=== PATIENT | male | born 1965 | race Caucasian/White ===

== ENCOUNTER 2017-05-03 23:54 | Emergency (ER) | payer BC ==
[2017-05-04] MEDS ORDERED: SODIUM CHLORIDE 0.9% 1,000 ML IV STA ×2 (00:23)
[2017-05-04] MEDS ORDERED: HYDROCORTISONE SUCCINATE 100 MG/2 ML VIAL IV STA (00:23)
[2017-05-04] MEDS ORDERED: ACETAMINOPHEN IV (For NPO) 1,000 MG in EMPTY BAG 1 BAG IVPB STA (00:34)
[2017-05-04] MEDS ORDERED: IBUPROFEN 800 MG TAB PO STA (00:34)
--- NOTE | 2017-05-04 00:46 | XR ---
EXAM: XR Chest, 2 Views CLINICAL HISTORY: Reason: Weakness TECHNIQUE: Frontal and lateral views of the chest. COMPARISON: No relevant prior studies available. FINDINGS: Lungs: No consolidation. Pleural space: No effusion. No pneumothorax. Heart: No cardiomegaly. Mediastinum: Unremarkable. Bones/joints: Unremarkable. IMPRESSION: No acute cardiopulmonary process.
--- NOTE | 2017-05-04 01:01 | ED ---
General Adult HPI - General Chief complaint: Shortness of Breath Stated complaint: MARIA LUISA Time Seen by Provider: 05/04/17 00:23 Source: patient, family, RN notes reviewed, old records reviewed Mode of arrival: ambulatory Limitations: no limitations - History of Present Illness Initial comments: This is a 51-year-old male the ER for evaluation of shortness of breath difficulty breathing and fever. 2 days with. Patient had some similar episodes in order last month. Patient suffers from asthma as well as adrenal insufficiency, patient states fever and worsening shortness of breath started tonight, he did increase his steroid dose by 10 mg. Denies any significant shortness of breath aside from normal, but he does have some left-sided chest pain. No nausea no vomiting no diarrhea - Related Data Home Medications Medication Instructions Recorded Confirmed ALPRAZolam [Xanax] 2 mg PO DIRECTED PRN 08/25/13 05/04/17 Albuterol Inhaler [Ventolin 2 puff INHALATION Q6HR PRN 08/25/13 05/04/17 Inhaler] Allopurinol [Zyloprim] 300 mg PO DAILY 08/25/13 05/04/17 Cholecalciferol [Vitamin D3] 5,000 unit PO DAILY 08/25/13 05/04/17 Indomethacin [Indocin] 50 mg PO DIRECTED 08/25/13 05/04/17 Ipratropium [place] [Atrovent Hfa] 2 puff INHALATION QID 08/25/13 05/04/17 Omeprazole 40 mg PO AC-BRKFST 08/25/13 05/04/17 Hydrocortisone 25 mg PO DIRECTED 08/26/13 05/04/17 Multivitamin [Men's Multi-Vitamin] 1 each PO DAILY 12/02/13 05/04/17 Budesonide-Formot 160-4.5 Mcg 1 puff INHALATION BID 03/31/14 05/04/17 [Symbicort 160-4.5 Mcg Inhaler] Montelukast [Singulair] 10 mg PO DAILY 06/29/14 05/04/17 Allergies Allergy/AdvReac Type Severity Reaction Status Date / Time citalopram AdvReac Unknown Verified 05/04/17 00:00 sertraline HCl [From Zoloft] AdvReac Unknown Verified 05/04/17 00:00 Review of Systems ROS Statement: Those systems with pertinent positive or pertinent negative responses have been documented in the HPI. ROS Other: All systems not noted in ROS Statement are negative. Past Medical History Past Medical History: Asthma, Osteoarthritis (OA), Sleep Apnea/CPAP/BIPAP Additional Past Medical History / Comment(s): Glasses, Loose or chipped teeth, Jassi's, gout, back pain, sensitive gag reflex&difficulty chewing/swallowing History of Any Multi-Drug Resistant Organisms: None Reported Past Surgical History: Bariatric Surgery, Heart Catheterization Additional Past Surgical History / Comment(s): Gastric sleeve, right arm lymph node removal. Past Anesthesia/Blood Transfusion Reactions: No Reported Reaction Additional Past Anesthesia/Blood Transfusion Reaction / Comment(s): yes, problems with anesthesia Past Psychological History: Anxiety Smoking Status: Former smoker Past Alcohol Use History: None Reported Past Drug Use History: None Reported General Exam Limitations: no limitations General appearance: alert, in no apparent distress, obese Head exam: Present: atraumatic, normocephalic, normal inspection Eye exam: Present: normal appearance, PERRL, EOMI. Absent: scleral icterus, conjunctival injection, periorbital swelling ENT exam: Present: normal exam, mucous membranes moist Neck exam: Present: normal inspection. Absent: tenderness, meningismus, lymphadenopathy Respiratory exam: Present: normal lung sounds bilaterally. Absent: respiratory distress, wheezes, rales, rhonchi, stridor Cardiovascular Exam: Present: normal rhythm, tachycardia, normal heart sounds. Absent: systolic murmur, diastolic murmur, rubs, gallop, clicks GI/Abdominal exam: Present: soft, normal bowel sounds. Absent: distended, tenderness, guarding, rebound, rigid Extremities exam: Present: normal inspection, full ROM, normal capillary refill. Absent: tenderness, pedal edema, joint swelling, calf tenderness Back exam: Present: normal inspection Neurological exam: Present: alert, oriented X3, CN II-XII intact Psychiatric exam: Present: normal affect, normal mood Skin exam: Present: warm, dry, intact, normal color. Absent: rash Course Vital Signs 05/03/17 05/04/17 05/04/17 23:57 00:39 00:58 Temperature 100.6 F H Pulse Rate 114 H 113 H Respiratory 22 22 20 Rate Blood Pressure 158/92 150/77 O2 Sat by Pulse 93 L 96 Oximetry 05/04/17 05/04/1718 01:50 01:58 02:13 Temperature 101.9 F H Pulse Rate 108 H 106 H 111 H Respiratory 20 Rate Blood Pressure 130/78 O2 Sat by Pulse 95 Oximetry - Reevaluation(s) Reevaluation #1: 05/04/17 03:42 Spoke with patient length regarding steroid dosage, patient is had a drill issue for years he states she is well aware needs to increase his steroid dose EKG Findings - EKG Comments: EKG Findings:: EKG shows sinus tachycardia rate 113, [place] 120, QRS 142, QTc 502 Medical Decision Making - Medical Decision Making 51 for evaluation of elevated heart rate fever not feeling well. Patient's flu test x-ray CTA negative lab work normal patient advised to stay in hospital for management of adrenal C, steroids IV steroids as well as monitor her blood cultures. Patient is refusing hospital admission at this time, fevers improved patient states he feels fine and would like to be discharged - Lab Data Result diagrams: 05/04/17 00:14 05/04/17 00:14 Lab Results 05/04/17 05/04/17 05/04/17 Range/Units 00:14 00:14 00:14 WBC 7.9 (3.8-10.6) k/uL RBC 5.43 (4.30-5.90) m/uL Hgb 14.6 (13.0-17.5) gm/dL Hct 46.7 (39.0-53.0) % MCV 86.0 (80.0-100.0) fL MCH 27.0 (25.0-35.0) pg MCHC 31.4 (31.0-37.0) g/dL RDW 16.0 H (11.5-15.5) % Plt Count 219 (150-450) k/uL Neutrophils % 84 % Lymphocytes % 7 % Monocytes % 7 % Eosinophils % 1 % Basophils % 1 % Neutrophils # 6.6 (1.3-7.7) k/uL Lymphocytes # 0.6 L (1.0-4.8) k/uL Monocytes # 0.6 (0-1.0) k/uL Eosinophils # 0.1 (0-0.7) k/uL Basophils # 0.1 (0-0.2) k/uL PT (9.0-12.0) sec INR (<1.2) APTT (22.0-30.0) sec D-Dimer (<0.60) mg/L FEU Sodium 141 (137-145) mmol/L Potassium 4.2 (3.5-5.1) mmol/L Chloride 101 (98-107) mmol/L Carbon Dioxide 28 (22-30) mmol/L Anion Gap 12 mmol/L BUN 23 H (9-20) mg/dL Creatinine 1.30 H (0.66-1.25) mg/dL Est GFR (MDRD) Af Amer >60 (>60 ml/min/1.73 sqM) Est GFR (MDRD) Non-Af 58 (>60 ml/min/1.73 sqM) Glucose 93 (74-99) mg/dL Plasma Lactic Acid Michael (0.7-2.0) mmol/L Calcium 9.4 (8.4-10.2) mg/dL Phosphorus 2.8 (2.5-4.5) mg/dL Magnesium 1.8 (1.6-2.3) mg/dL Total Bilirubin 0.4 (0.2-1.3) mg/dL AST 27 (17-59) U/L ALT 42 (21-72) U/L Alkaline Phosphatase 83 (38-126) U/L Total Creatine Kinase 152 (55-170) U/L CK-MB (CK-2) 0.9 (0.0-2.4) ng/mL CK-MB (CK-2) Rel Index 0.6 Troponin I <0.012 (0.000-0.034) ng/mL Total Protein 7.5 (6.3-8.2) g/dL Albumin 4.3 (3.5-5.0) g/dL TSH (0.465-4.680) mIU/L Urine Color Urine Appearance (Clear) Urine pH (5.0-8.0) Ur Specific Olive (1.001-1.035) Urine Protein (Negative) Urine Glucose (UA) (Negative) Urine Ketones (Negative) Urine Blood (Negative) Urine Nitrite (Negative) Urine Bilirubin (Negative) Urine Urobilinogen (<2.0) mg/dL Ur Leukocyte Esterase (Negative) Urine RBC (0-5) /hpf Urine WBC (0-5) /hpf Urine Mucus (None) /hpf Influenza Type A RNA (Not Detectd) Influenza Type B (PCR) (Not Detectd) 05/04/17 05/04/17 05/04/17 Range/Units 00:14 00:14 00:14 WBC (3.8-10.6) k/uL RBC (4.30-5.90) m/uL Hgb (13.0-17.5) gm/dL Hct (39.0-53.0) % MCV (80.0-100.0) fL MCH (25.0-35.0) pg MCHC (31.0-37.0) g/dL RDW (11.5-15.5) % Plt Count (150-450) k/uL Neutrophils % % Lymphocytes % % Monocytes % % Eosinophils % % Basophils % % Neutrophils # (1.3-7.7) k/uL Lymphocytes # (1.0-4.8) k/uL Monocytes # (0-1.0) k/uL Eosinophils # (0-0.7) k/uL Basophils # (0-0.2) k/uL PT 9.7 (9.0-12.0) sec INR 1.0 (<1.2) APTT 25.3 (22.0-30.0) sec D-Dimer 0.73 H (<0.60) mg/L FEU Sodium (137-145) mmol/L Potassium (3.5-5.1) mmol/L Chloride (98-107) mmol/L Carbon Dioxide (22-30) mmol/L Anion Gap mmol/L BUN (9-20) mg/dL Creatinine (0.66-1.25) mg/dL Est GFR (MDRD) Af Amer (>60 ml/min/1.73 sqM) Est GFR (MDRD) Non-Af (>60 ml/min/1.73 sqM) Glucose (74-99) mg/dL Plasma Lactic Acid Michael 1.3 (0.7-2.0) mmol/L Calcium (8.4-10.2) mg/dL Phosphorus (2.5-4.5) mg/dL Magnesium (1.6-2.3) mg/dL Total Bilirubin (0.2-1.3) mg/dL AST (17-59) U/L ALT (21-72) U/L Alkaline Phosphatase (38-126) U/L Total Creatine Kinase (55-170) U/L CK-MB (CK-2) (0.0-2.4) ng/mL CK-MB (CK-2) Rel Index Troponin I (0.000-0.034) ng/mL Total Protein (6.3-8.2) g/dL Albumin (3.5-5.0) g/dL TSH 3.160 (0.465-4.680) mIU/L Urine Color Urine Appearance (Clear) Urine pH (5.0-8.0) Ur Specific [place] (1.001-1.035) Urine Protein (Negative) Urine Glucose (UA) (Negative) Urine Ketones (Negative) Urine Blood (Negative) Urine Nitrite (Negative) Urine Bilirubin (Negative) Urine Urobilinogen (<2.0) mg/dL Ur Leukocyte Esterase (Negative) Urine RBC (0-5) /hpf Urine WBC (0-5) /hpf Urine Mucus (None) /hpf Influenza Type A RNA (Not Detectd) Influenza Type B (PCR) (Not Detectd) 05/04/17 05/04/17 Range/Units 00:58 01:53 WBC (3.8-10.6) k/uL RBC (4.30-5.90) m/uL Hgb (13.0-17.5) gm/dL Hct (39.0-53.0) % MCV (80.0-100.0) fL MCH (25.0-35.0) pg MCHC (31.0-37.0) g/dL RDW (11.5-15.5) % Plt Count (150-450) k/uL Neutrophils % % Lymphocytes % % Monocytes % % Eosinophils % % Basophils % % Neutrophils # (1.3-7.7) k/uL Lymphocytes # (1.0-4.8) k/uL Monocytes # (0-1.0) k/uL Eosinophils # (0-0.7) k/uL Basophils # (0-0.2) k/uL PT (9.0-12.0) sec INR (<1.2) APTT (22.0-30.0) sec D-Dimer (<0.60) mg/L FEU Sodium (137-145) mmol/L Potassium (3.5-5.1) mmol/L Chloride (98-107) mmol/L Carbon Dioxide (22-30) mmol/L Anion Gap mmol/L BUN (9-20) mg/dL Creatinine (0.66-1.25) mg/dL Est GFR (MDRD) Af Amer (>60 ml/min/1.73 sqM) Est GFR (MDRD) Non-Af (>60 ml/min/1.73 sqM) Glucose (74-99) mg/dL Plasma Lactic Acid Michael (0.7-2.0) mmol/L Calcium (8.4-10.2) mg/dL Phosphorus (2.5-4.5) mg/dL Magnesium (1.6-2.3) mg/dL Total Bilirubin (0.2-1.3) mg/dL AST (17-59) U/L ALT (21-72) U/L Alkaline Phosphatase (38-126) U/L Total Creatine Kinase (55-170) U/L CK-MB (CK-2) (0.0-2.4) ng/mL CK-MB (CK-2) Rel Index Troponin I (0.000-0.034) ng/mL Total Protein (6.3-8.2) g/dL Albumin (3.5-5.0) g/dL TSH (0.465-4.680) mIU/L Urine Color Light Yellow Urine Appearance Clear (Clear) Urine pH 6.0 (5.0-8.0) Ur Specific [place] 1.006 (1.001-1.035) Urine Protein Negative (Negative) Urine Glucose (UA) Negative (Negative) Urine Ketones Negative (Negative) Urine Blood Small H (Negative) Urine Nitrite Negative (Negative) Urine Bilirubin Negative (Negative) Urine Urobilinogen <2.0 (<2.0) mg/dL Ur Leukocyte Esterase Negative (Negative) Urine RBC 5 (0-5) /hpf Urine WBC 1 (0-5) /hpf Urine Mucus Rare H (None) /hpf Influenza Type A RNA Not Detected (Not Detectd) Influenza Type B (PCR) Not Detected (Not Detectd) - Radiology Data Radiology results: report reviewed (Chest x-ray is negative CT is negative), image reviewed Disposition Clinical Impression: Fever, Adrenal insufficiency Disposition: HOME SELF-CARE Condition: Good Instructions: Secondary Adrenal Insufficiency (ED), Fever in Adults (ED) Referrals: Fei Carr DO [Primary Care Provider] - 1-2 days
[2017-05-04 01:08] LABS: Appearance,Urine Clear (Clear); Bilirubin,Urine Negative (Negative); Blood,Urine Small (Negative); Color,Urine Light Yellow; Glucose,Urine (UA) Negative (Negative); Ketones,Urine Negative (Negative); Leukocyte Esterase,Urine Negative (Negative); Mucus,Urine Rare /hpf; Nitrite,Urine Negative (Negative); Protein,Urine Negative (Negative); RBC,Urine 5 /hpf (0-5); Specific Gravity,Urine 1.006 (1.001-1.035); Urobilinogen,Urine <2.0 mg/dL (<2.0); WBC,Urine 1 /hpf (0-5)
[2017-05-04 01:12] LABS: Basophils # (A) 0.1 k/uL (0-0.2); Basophils % (A) 1 %; Eosinophils # (A) 0.1 k/uL (0-0.7); Eosinophils % (A) 1 %; HCT 46.7 % (39.0-53.0); HGB 14.6 gm/dL (13.0-17.5); Lymphocytes # (A) 0.6 k/uL (1.0-4.8); Lymphocytes % (A) 7 %; MCHC 31.4 g/dL (31.0-37.0); Mean Platelet Volume 7.5; Monocytes # (A) 0.6 k/uL (0-1.0); Monocytes % (A) 7 %; Neutrophils # (A) 6.6 k/uL (1.3-7.7); Neutrophils % (A) 84 %; Platelet Count 219 k/uL (150-450); RBC 5.43 m/uL (4.30-5.90); WBC 7.9 k/uL (3.8-10.6)
[2017-05-04 01:25] LABS: D-Dimer 0.73 mg/L FEU (<0.60)
[2017-05-04 01:29] LABS: ALT 42 U/L (21-72); AST 27 U/L (17-59); Albumin 4.3 g/dL (3.5-5.0); Alkaline Phosphatase 83 U/L (38-126); Anion Gap 12 mmol/L; Blood Urea Nitrogen 23 mg/dL (9-20); Calcium 9.4 mg/dL (8.4-10.2); Carbon Dioxide 28 mmol/L (22-30); Chloride 101 mmol/L (98-107); Glucose 93 mg/dL (74-99); Magnesium 1.8 mg/dL (1.6-2.3); Partial Thromboplastin Time 25.3 sec (22.0-30.0); Phosphorus 2.8 mg/dL (2.5-4.5); Potassium 4.2 mmol/L (3.5-5.1); Prothrombin Time 9.7 sec (9.0-12.0); Sodium 141 mmol/L (137-145); Total Bilirubin 0.4 mg/dL (0.2-1.3); Total Protein 7.5 g/dL (6.3-8.2)
[2017-05-04 01:31] LABS: Creatine Kinase 152 U/L (55-170)
[2017-05-04] MEDS ORDERED: IPRATROPIUM-ALBUTEROL 3 ML NEB INHALATION STA (01:31)
[2017-05-04 01:44] LABS: Creatine Kinase MB 0.9 ng/mL (0.0-2.4); Troponin I <0.012 ng/mL (0.000-0.034)
[2017-05-04] MEDS ORDERED: RX INFO: IV CONTRAST WAS GIVEN 1 EACH MISC MISCELLANE PRN (02:34)
--- NOTE | 2017-05-04 03:37 | CT ---
EXAM: CT Angiography Chest With Intravenous Contrast CLINICAL HISTORY: Reason: Pain TECHNIQUE: Axial computed tomographic angiography images of the chest with intravenous contrast using pulmonary embolism protocol. CTDI is 180 mGy and DLP is 939 mGy-cm. This CT exam was performed using one or more of the following dose reduction techniques: automated exposure control, adjustment of the mA and/or kV according to patient size, and/or use of iterative reconstruction technique. MIP reconstructed images were created and reviewed. COMPARISON: 05/04/17 FINDINGS: Pulmonary arteries: Poor contrast timing limits evaluation. No large central filling defects. Aorta: No acute findings. No thoracic aortic aneurysm. Lungs: No mass. No consolidation. Pleural space: No significant effusion. No pneumothorax. Heart: No cardiomegaly or pericardial effusion. Bones/joints: No acute fracture or dislocation. Soft tissues: Unremarkable. Lymph nodes: No enlarged lymph nodes. Upper abdomen: Evidence of prior sleeve gastrectomy. IMPRESSION: Evaluation of the distal pulmonary arteries are limited by poor contrast timing. No definite filling defects are seen in the central pulmonary arteries. No acute intrathoracic findings.
[2017-05-04] MEDS ORDERED: HYDROCORTISONE SUCCINATE 100 MG/2 ML VIAL IV SCH (06:00)
[2017-05-04 06:31] VITALS: BP 127/75; PULSE 107; RESP 18; TEMP 98.9
== END 2017-05-04 04:08 | disposition home or self-care (01) ==
LOC: EC 23:54
DX: E27.40 Unspecified adrenocortical insufficiency (principal); R50.9 Fever, unspecified; R06.02 Shortness of breath; R07.9 Chest pain, unspecified; J45.909 Unspecified asthma, uncomplicated; M19.90 Unspecified osteoarthritis, unspecified site; G47.30 Sleep apnea, unspecified; Z95.5 Presence of coronary angioplasty implant and graft; Z87.891 Personal history of nicotine dependence; Z79.1 Long term (current) use of non-steroidal anti-inflammatories (NSAID); Z79.52 Long term (current) use of systemic steroids; Z79.51 Long term (current) use of inhaled steroids; Z79.899 Other long term (current) drug therapy; Z88.8 Allergy status to other drugs, medicaments and biological substances
CPT/HCPCS: 99285; 96374; 96375; 96361 ×3; 36415; 94640; 93005; 85379; 80053; 84443; 82550; 82553; 83605; 83735; 84100; 84484; 85025; 85610; 85730; 81001; 87040; 87086; 87502; 71046; 71275; J1720; Q9967; J0131

== ENCOUNTER → 2017-10-17 | Outpatient (CLI) | payer BC ==
[2017-10-17 07:36] LABS: ALT 46 U/L (21-72); AST 26 U/L (17-59); Albumin 4.2 g/dL (3.5-5.0); Alkaline Phosphatase 73 U/L (38-126); Anion Gap 9 mmol/L; Blood Urea Nitrogen 20 mg/dL (9-20); Calcium 9.5 mg/dL (8.4-10.2); Carbon Dioxide 30 mmol/L (22-30); Chloride 103 mmol/L (98-107); Glucose 89 mg/dL (74-99); Potassium 4.6 mmol/L (3.5-5.1); Sodium 142 mmol/L (137-145); Total Bilirubin 0.5 mg/dL (0.2-1.3); Total Protein 6.7 g/dL (6.3-8.2)
== END | disposition home or self-care (01) ==
LOC: LABWHC1 06:37
PROVIDERS: ATTEND Internal Medicine Endocrinology, Diabetes & Metabolism
DX: E27.1 Primary adrenocortical insufficiency (principal)
CPT/HCPCS: 36415; 80053; 82024; 82533

== ENCOUNTER → 2017-11-11 | Outpatient (CLI) | payer BC | END | disposition home or self-care (01) | LOC: LABWHC1 15:30 | PROVIDERS: ATTEND Internal Medicine Endocrinology, Diabetes & Metabolism | DX: E29.1 Testicular hypofunction (principal) | CPT/HCPCS: 36415; 83001; 83002; 84403 ==

== ENCOUNTER → 2018-06-23 | Outpatient (CLI) | payer BC ==
[2018-06-23 18:02] LABS: HCT 50.1 % (39.0-53.0); HGB 15.3 gm/dL (13.0-17.5); MCH 25.5 pg (25.0-35.0); MCHC 30.5 g/dL (31.0-37.0); MCV 83.4 fL (80.0-100.0); Mean Platelet Volume 6.7; Platelet Count 273 k/uL (150-450); RBC 6.01 m/uL (4.30-5.90); RDW 15.6 % (11.5-15.5); WBC 10.9 k/uL (3.8-10.6)
== END | disposition home or self-care (01) ==
LOC: LABWHC1 17:12
PROVIDERS: ATTEND Internal Medicine Endocrinology, Diabetes & Metabolism
DX: E27.40 Unspecified adrenocortical insufficiency (principal); E29.1 Testicular hypofunction
CPT/HCPCS: 36415; 82024; 82533; 84153; 84403; 85027

== ENCOUNTER → 2018-09-16 | Outpatient (CLI) | payer BC ==
--- NOTE | 2018-09-16 16:36 | CT ---
EXAMINATION TYPE: CT chest w con DATE OF EXAM: 09/16/2018 COMPARISON: Chest x-ray dated 08/17/[address] dated 05/04/2017 HISTORY: COPD w/acute exacerbation. Pt stated an CXR 3 wks ago showed abnormality in LT lung CT DLP: 922 mGycm. Automated Exposure Control for Dose Reduction was Utilized. TECHNIQUE: CT scan of the thorax is performed following with IV Contrast, patient injected with 100 mL of Isovue 300. FINDINGS: LUNGS: There is a punctate 2 mm pulmonary nodule in the right midlung on image 30 laterally that is h yperdense and may represent early granuloma. This is of low suspicion for metastasis. Mild background centrilobular emphysematous change is seen. Dependent bibasilar subsegmental atelectasis is noted. T here is very slight left hemidiaphragm elevation. There is no pleural effusion or pneumothorax seen . The tracheobronchial tree is patent. MEDIASTINUM: Abutting the right superior pericardial surface there is a well-circumscribed ovoid neda ggressive appearing cystic fluid collection measuring 5.3 x 2.4 cm respectively stable from the exam of 05/04/2017. 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 This measures fluid attenuation on pos tcontrast imaging. No communication with the adjacent ascending aorta normal significant mass effect on aorta. The superior vena cava is slightly diminutive adjacent to this however is also slightly dim inutive cranial to this, likely unrelated. Prominent epicardial fat pad is seen on the left. There are no greater than 1 cm hilar or mediastinal lymph nodes. Trace pericardial effusion is noted anteriorly. Mild coronary calcifications are present. OTHER: Highly concerning partially visualized right renal mass measuring up to 6.4 x 6.0 cm appearing to abut if not invade the adjacent calyces and additional solid right renal mass measuring 2.4 x 2.5 cm with surrounding perinephric fat stranding. These are seen of the mid to lower pole with more beatriz ign mid to upper pole exophytic 1.4 cm cyst. Small exophytic left cyst is also seen measuring 9 mm an d upper pole left 2.9 cm cyst. Mild degree hepatic steatosis and cholelithiasis are also noted as wel l as very subtle haziness of the central mesentery inferior most images. Pancreatic parenchyma atroph y is also present. Retroaortic left renal vein is noted. Colonic diverticulosis is seen. Partial munir rectomy change is also noted. Moderate multilevel degenerative change of the spine. IMPRESSION: 1. Highly concerning partially visualized right renal masses that should be considered neoplasm until proven otherwise. 2. The previously seen probable pericardial cyst is stable and likely benign. A [place] level critical message alert has been initiated for Anthony Graf MD via the [employer] Critical Results System on 09/16/2018 4:34 PM. This message alert has been sent to Anthony marcano MD via the preferences provided by the clinician for the receipt of Radiology Critical Findings. Message ID [id number].
== END | disposition home or self-care (01) ==
LOC: RADCTMAIN 15:37
PROVIDERS: ATTEND Internal Medicine Critical Care Medicine
DX: J44.1 Chronic obstructive pulmonary disease with (acute) exacerbation (principal)
CPT/HCPCS: 71260; Q9967